=== PATIENT | female | born 1990 | race Caucasian/White ===

== ENCOUNTER 2020-01-21 17:51 | Emergency (ER) | payer BC ==
[~2020-01-21] VITALS: Ht 162.6 cm; Wt 66.2 kg
--- NOTE | ~2020-01-21 | EKG ---
[facility] [place] [facility] [address] [facility] [place], [place] [address] Draft EKG completed, results pending confirmation PATIENT NAME: RAHEL FOURNIER Electrocardiogram DATE OF : [birth year] PHYSICIAN: PRELIMINARY REPORT #: [id number] REPORT IS CONFIDENTIAL AND NOT TO BE RELEASED WITHOUT AUTHORIZATION
[2020-01-21] MEDS ORDERED: FENUGREEK500 MG (18:14)
[2020-01-21] MEDS ORDERED: FOLIC ACID1 MG PO (18:14)
[2020-01-21] MEDS ORDERED: AZULFIDINE500 MG PO (18:15)
[2020-01-21] MEDS ORDERED: TRI-LINYAH1 EACH PO (18:15)
[2020-01-21] MEDS ORDERED: ALLERGY MEDICAT25 MG PO (18:16)
[2020-01-21] MEDS ORDERED: VENTOLIN HFA18 GM INH (18:17)
--- NOTE | 2020-01-21 18:54 | EKG ---
[facility] [address] [facility] [place], [place] [address] Signed Normal sinus rhythm Normal ECG When compared with ECG of 21-JAN-2020 18:32, (Unconfirmed) No significant change was found Confirmed by NATALIA MOISE MD ([id number]) on 01/21/2020 6:54:24 PM Electronically Signed By: NATALIA MOISE MD 01/21/20 1854 PATIENT NAME: RAHEL FOURNIER Electrocardiogram DATE OF : [birth year] PHYSICIAN: NATALIA MOISE MD REPORT #: [id number] REPORT IS CONFIDENTIAL AND NOT TO BE RELEASED WITHOUT AUTHORIZATION
[2020-01-21] MEDS ORDERED: POTASSIUM CHLO10 MEQ PO (19:38)
--- NOTE | 2020-01-23 00:10 | PATH ---
[facility] [address] [place], [place] [address] Signed ORDERING PHYSICIAN: Ileana Multani MD PATIENT NAME: RAHEL FOURNIER GENDER: F : 1990 Prior History: No cases found. SPECIMEN(S): No Source Given MOLECULAR PATHOLOGY RESULTS: SARS-CoV-2 Not Detected ADDITIONAL NOTES.: The [place] Fusion SARS-CoV-2 Assay is a multiplex real-time PCR (RT-PCR) in vitro diagnostic test intended for the qualitative detection of RNA from SARS-CoV-2 from individuals who meet COVID-19 clinical and/or epidemiological criteria. In general, SARS-CoV-2 RNA can be detected during the acute phase of infection. Positive results indicate the presence of SARS-CoV-2 RNA. Clinical correlation with patient history and other diagnostic information is necessary to determine patient infection status. Positive results do not rule out bacterial infection or co-infection with other viruses. Negative results do not preclude SARS-CoV-2 infection and should not be used as the sole basis for patient management decisions. Negative results must be combined with other clinical observations, patient history, and epidemiological information. The [place] Fusion SARS-CoV-2 Assay is not yet approved or cleared by the [place] FDA. When there are no FDA-approved or cleared tests available, and other criteria are met, FDA can make tests available under an emergency access mechanism called an Emergency Use Authorization (EUA). The EUA for this test is supported by the Gastroenterology Nurse Practitioner of Health and Human Service's (HHS's) declaration that circumstances exist to justify the emergency use of in vitro diagnostics for the detection and/or diagnosis of the virus that causes COVID-19. This EUA will remain in effect for the duration of the COVID-19 declaration justifying emergency of IVDs, unless it is terminated or revoked by FDA, after which the test may no longer be used. The [place] Fusion SARS-CoV-2 Assay is for use only under EUA PATIENT NAME: RAHEL FOURNIERINA PATHOLOGY DATE OF : [birth year] REPORT #: [id number] PHYSICIAN: NICOLAS PATHOLOGY PCP: CARLOS JUÁREZ REPORT IS CONFIDENTIAL AND NOT TO BE RELEASED WITHOUT AUTHORIZATION [facility] [address] [place] [id number] Signed in laboratories certified under the Clinical Laboratory Improvement Amendments of 1988 (CLIA) to perform high complexity tests. [facility] is certified under CLIA to perform high complexity clinical laboratory testing. PERFORMING LABORATORY.: Molecular testing was performed by [facility] [address] (Data Scientist: Mikal Hernandez D.O.; CLIA#: [id number]) Diagnostician: System Interface Pathologist Electronically Signed 01/22/2020 Copies: ~ PATIENT NAME: RAHEL FOURNIER PATHOLOGY DATE OF : [birth year] REPORT #: [id number] PHYSICIAN: NICOLAS BRIGGS PCP: CARLOS JUÁREZ REPORT IS CONFIDENTIAL AND NOT TO BE RELEASED WITHOUT AUTHORIZATION
== END 2020-01-21 20:03 | disposition home or self-care (01) ==
LOC: ED 17:51 → EDBD 17:53 → ED 20:03
DX: E87.6 Hypokalemia (principal); J45.909 Unspecified asthma, uncomplicated; Z79.899 Other long term (current) drug therapy
CPT/HCPCS: 80053; 81001; 83735; 85025; 93005; 93010; 99285-25; C9803